=== PATIENT | female | born 1985 | race African-American/Black ===

== ENCOUNTER 2016-12-28 09:42 | Emergency (ER) | payer MEDICAID ==
[~2016-12-28] VITALS: Ht 160 cm; Wt 88.0 kg
[~2016-12-28 09:42] MED LIST: ALPRAZOLAM0.25 MG ORAL; CIPRO500 MG PO; CIPROFLOXACIN500 M2 ORAL; IBUPROFEN600 M1 PO; NKM; ONDANSETRON ODT4 MG ORAL; VIBRAMYCIN100 MG ORAL; ZOFRAN ODT4 MG ORAL
[2016-12-28 09:53] VITALS: BP 131/95
--- NOTE | 2016-12-28 10:05 | Emergency Room Report ---
History of Present Illness General Chief Complaint: Abdominal Pain Source: Patient Present Illness HPI Patient is a 31-year-old female who presented after increased a left-sided foot pain. Patient had gradual onset of symptoms over several week. Patient intermittent symptoms which she states she's had previous work up with her primary care physician to include blood panel. The patient stated she's not had any imaging previously she denies any recent trauma. Patient reported having pain to the bottom of the foot as well as toes. She denies any recent fever. She reports having increased abdominal bloating. As she states she has irregular periods Allergies: Coded Allergies: No Known Allergies (Unverified , 09/26/12) Patient History Past Medical History: see triage record Last Menstrual Period: 11/02/16 Reviewed Nursing Documentation: PMH: Agreed, PSxH: Agreed Nursing Documentation-PM Past Medical History: No Stated History Review of Systems All Other Systems: negative except mentioned in HPI Physical Exam Vital Signs Date Time Temp Pulse Resp B/P Pulse Ox O2 Delivery O2 Flow Rate FiO2 12/28/16 09:48 98.2 92 16 131/95 100 Room Air General Appearance: well appearing, no apparent distress, alert, GCS 15 Head: normocephalic, atraumatic ENT: hearing grossly normal, normal voice Neck: full range of motion, supple Respiratory: no respiratory distress, speaking full sentences Gastrointestinal: normal inspection, soft Musculoskeletal: no calf tenderness, other - flat arch to left foot some tenderness to plantar fascia Neurologic: normal inspection, alert, oriented x3, responsive, singing waiter or waitress III-XII nml as tested, normal gait Psychiatric: mood/affect normal Skin: normal inspection, normal color, no rash Medical Decision Making Diagnostic Impression: Primary Impression: Abdominal pain Additional Impression: Plantar fasciitis of left foot ER Course Patient presented for foot pain. Differential diagnoses include was was not limited to cellulitis, foreign body, fracture, plantar fasciitis, vascular insufficiency, sprain. The patient appears to have evidence of a plantar fasciitis. The patient was advised to followup with her primary care physician for podiatry referral if pain persisted. The patient does not appear to have any infection at this time. The patient is advised to follow up with primary care doctor in 1-2 days. Patient is advised to return if any worsening condition or if any changes in status that are concerning. Labs Test 12/28/16 10:00 Urine Color Pale yellow Urine Appearance Clear Urine pH 7 (4.5-8.0) Urine Specific [place] 1.010 (1.005-1.035) Urine Protein Negative (NEGATIVE) Urine Glucose (UA) Negative (NEGATIVE) Urine Ketones Negative (NEGATIVE) Urine Occult Blood Negative (NEGATIVE) Urine Nitrite Negative (NEGATIVE) Urine Bilirubin Negative (NEGATIVE) Urine Urobilinogen Normal MG/DL (0.0-1.0) Urine Leukocyte Esterase 1+ (NEGATIVE) Urine RBC 0-2 /HPF (0 - 2) Urine WBC 5-10 /HPF (0 - 2) Urine Squamous Epithelial Cells Moderate /LPF (NONE/OCC) Urine Bacteria Few /HPF (NONE) Urine HCG, Qualitative Negative Last Vital Signs Date Time Temp Pulse Resp B/P Pulse Ox O2 Delivery O2 Flow Rate FiO2 12/28/16 09:53 98.2 16 131/95 100 Room Air 12/28/16 09:48 92 Status: improved Disposition: HOME, SELF-CARE Condition: Stable Scripts Ibuprofen* (MOTRIN*) 600 Mg Tablet 600 MG ORAL Q8H Y for For Pain, #30 TAB 0 Refills Prov: Usman Drake 12/28/16 Usman Drake Dec 28, 2016 10:05
[2016-12-28 10:35] LABS: APPEARANCE,URINE CLEAR; KETONES,URINE NEGATIVE (NEGATIVE); LEUKOCYTE ESTERASE ,URINE 1+ (NEGATIVE); NITRITE,URINE NEGATIVE (NEGATIVE); PH,URINE 7 (4.5-8.0); PROTEIN,URINE NEGATIVE (NEGATIVE); UROBILINOGEN,URINE NORMAL MG/DL (0.0-1.0)
[2016-12-28] MEDS ORDERED: IBUPROFEN600 MG ORAL (10:41)
[2016-12-28 10:47] VITALS: BP 131/95
[2016-12-28 10:51] LABS: BACTERIA,URINE FEW /HPF; RBC,URINE 0-2 /HPF (0 - 2); SQUAMOUS EPITHELIAL CELL,UR MODERATE /LPF (NONE/OCC)
--- NOTE | 2016-12-28 11:21 | Diagnostic Imaging Report ---
Indications: Left foot pain, denies trauma Technique: 3 views of the left foot Findings: Comparison: None. No fracture, dislocation, lytic destruction, periosteal reaction, surrounding soft tissue swelling, or other acute changes are demonstrated. Small circumscribed lucency with thin sclerotic margin base first proximal phalanx. No deformity, alignment abnormality, arthritic change, soft tissue calcification, or other chronic changes are demonstrated. IMPRESSION: Small cystic lesion at first proximal phalanx, may be degenerative Otherwise negative left foot series.
== END 2016-12-28 11:01 | disposition home or self-care (01) ==
LOC: EMR 10:04
DX: M79.672 Pain in left foot (principal)
CPT/HCPCS: 81003; 81025; 99283

== ENCOUNTER 2017-01-05 19:01 | Emergency (ER) | payer MEDICAID ==
[~2017-01-05] VITALS: Ht 160 cm; Wt 90.7 kg
[~2017-01-05 19:01] MED LIST changes: +IBUPROFEN600 MG ORAL
[2017-01-05 19:31] VITALS: BP 147/96
[2017-01-05] MEDS ORDERED: Metoclopramide 10mg/2ml Inj IVP ONE (19:45)
[2017-01-05 20:18] LABS: BASOPHILS % (AUTO) 1.8 % (0.0-2.0); EOSINOPHILS % (AUTO) 1.2 % (0.0-3.0); LYMPHOCYTES % (AUTO) 32.7 % (20.0-45.0); MEAN CORPUSCULAR HEMOGLOBIN 29.7 PG (27.0-31.0); MEAN CORPUSCULAR HGB CONC 33.5 G/DL (32.0-36.0); MEAN CORPUSCULAR VOLUME 89 FL (80-99); MEAN PLATELET VOLUME 9.9 FL (6.5-10.1); MONOCYTES % (AUTO) 8.4 % (1.0-10.0); NEUTROPHILS % (AUTO) 55.9 % (45.0-75.0); PLATELET COUNT 228 K/UL (150-450); RED BLOOD COUNT 4.85 M/UL (4.20-5.40); RED CELL DISTRIBUTION WIDTH 15.8 % (11.6-14.8); WHITE BLOOD COUNT 8.1 K/UL (4.8-10.8)
[2017-01-05 20:19] LABS: APPEARANCE,URINE CLEAR; KETONES,URINE NEGATIVE (NEGATIVE); LEUKOCYTE ESTERASE ,URINE 2+ (NEGATIVE); NITRITE,URINE NEGATIVE (NEGATIVE); PH,URINE 6.5 (4.5-8.0); PROTEIN,URINE NEGATIVE (NEGATIVE); UROBILINOGEN,URINE 1 MG/DL (0.0-1.0)
[2017-01-05 20:32] LABS: RBC,URINE 0-2 /HPF (0 - 2)
[2017-01-05 20:33] LABS: BACTERIA,URINE FEW /HPF; SQUAMOUS EPITHELIAL CELL,UR MODERATE /LPF (NONE/OCC)
[2017-01-05 20:40] LABS: INR 0.9 (0.9-1.1); PROTHROMBIN TIME 9.4 SEC (9.30-11.50)
[2017-01-05 20:43] LABS: ALANINE AMINOTRANSFERASE 21 U/L (3-33); ANION GAP 12 (5-15); ASPARTATE AMINO TRANSFERASE 24 U/L (5-40); CALCIUM 9.6 mg/dL (8.6-10.2); CARBON DIOXIDE 25 mEQ/L (20-30); CHLORIDE 100 mEQ/L (98-107); CREATININE 0.7 mg/dL (0.5-0.9); GLOMERULAR FILTRATION RATE > 60 mL/min (>60); HEMOLYSIS 8; POTASSIUM 4.1 mEQ/L (3.4-4.9); SODIUM 137 mEQ/L (135-145); TOTAL PROTEIN 8.4 g/dL (6.6-8.7)
[2017-01-05] MEDS ORDERED: NITROFURANTOIN100 M2 ORAL (21:15)
[2017-01-05] MEDS ORDERED: IBUPROFEN600 MG ORAL (21:15)
[2017-01-05] MEDS ORDERED: ERYTHROMYCIN3.5 GM RIGHT EYE (21:15)
[2017-01-05 21:23] VITALS: BP 147/96
--- NOTE | 2017-01-05 21:59 | Emergency Room Report ---
History of Present Illness General Chief Complaint: General Complaint Source: Patient Present Illness HPI The patient is a 31-year-old female presenting for multiple complaints including rash, right eyelid swelling, and abdominal pain. She states that she noticed a total body rash one week prior which has now resolved but she states that it was itching. She denies any known irritants or history of allergies. Right lower eyelid swelling began 2 days prior and is described as 8/10 dull ache. Worse with touch. She denies any draining from the eye or discharge. She denies any changes in vision. Abdominal pain began 2 months prior and has been continuous. It is described as a 5/10 dull ache in the mid lower abdomen and right lower quadrant. She states her last normal menstrual period was also 2 months prior. she admits to history of right ovarian cyst. She admits to nausea but denies vomiting. She denies any other symptoms including F, chills, SOB, diarrhea, constipation, dysuria, hematuria, vaginal DC Allergies: Coded Allergies: Dairy (Verified Allergy, Unknown, 01/05/17) Patient History Past Medical History: see triage record Pertinent Family History: none Last Menstrual Period: 2 MONTHS AGO Now: No Reviewed Nursing Documentation: PMH: Agreed, PSxH: Agreed Nursing Documentation-PMH Past Medical History: No Stated History Review of Systems All Other Systems: negative except mentioned in HPI Physical Exam Vital Signs Date Time Temp Pulse Resp B/P (MAP) Pulse Ox O2 Delivery O2 Flow Rate FiO2 01/05/17 19:23 98.6 89 18 147/96 98 01/05/17 19:31 Room Air Sp02 EP Interpretation: reviewed, normal General Appearance: no apparent distress, alert, GCS 15, non-toxic Head: normocephalic, atraumatic Eyes: bilateral eye normal inspection, bilateral eye PERRL ENT: hearing grossly normal, normal pharynx, no angioedema, normal voice Neck: full range of motion, supple/symm/no masses Gastrointestinal: tenderness - TTP over the RLQ and suprapubic region Musculoskeletal: back normal, gait/station normal, normal range of motion, non- tender Neurologic: alert, oriented x3, responsive, motor strength/tone normal, sensory intact, speech normal Psychiatric: judgement/insight normal, memory normal, mood/affect normal, no suicidal/homicidal ideation Skin: normal color, no rash, warm/dry, well hydrated Medical Decision Making PA Attestation Dr. Arnold is my supervising physician. Patient management was discussed with my supervising physician Diagnostic Impression: Primary Impression: UTI (urinary tract infection) Qualified Codes: N39.0 - Urinary tract infection, site not specified Additional Impression: Blepharitis of right eyelid Qualified Codes: H01.002 - Unspecified blepharitis right lower eyelid ER Course The patient is a 31-year-old female presenting for multiple complaints including rash, right eyelid swelling, and abdominal pain DDx considered but not limited to: appendicitis, UTI, PID, ovarian cyst, blepharitis, conjunctivitis, stye, contact dermatitis, among others PE: NAD. HEENT: R lower eyelid has edema and erythema at lid margin. No injection or DC. PERRL Skin is warm and dry. No erythema. No urticaria. No lesions. TTP over the suprapubic and RLQ. No guarding. Normal BS. Blood work unremarkable. Neg preg. UA shows signs of infection. Pt given reglan with relief of nausea. She declines pain medication SHe will be treated for UTI and blepharitis and will be DC'ed home with ER precautions. Laboratory Tests Test 01/05/17 19:50 White Blood Count 8.1 K/UL (4.8-10.8) Red Blood Count 4.85 M/UL (4.20-5.40) Hemoglobin 14.4 G/DL (12.0-16.0) Hematocrit 43.0 % (37.0-47.0) Mean Corpuscular Volume 89 FL (80-99) Mean Corpuscular Hemoglobin 29.7 PG (27.0-31.0) Mean Corpuscular Hemoglobin Concent 33.5 G/DL (32.0-36.0) Red Cell Distribution Width 15.8 % (11.6-14.8) H Platelet Count 228 K/UL (150-450) Mean Platelet Volume 9.9 FL (6.5-10.1) Neutrophils (%) (Auto) 55.9 % (45.0-75.0) Lymphocytes (%) (Auto) 32.7 % (20.0-45.0) Monocytes (%) (Auto) 8.4 % (1.0-10.0) Eosinophils (%) (Auto) 1.2 % (0.0-3.0) Basophils (%) (Auto) 1.8 % (0.0-2.0) Prothrombin Time 9.4 SEC (9.30-11.50) Prothrombin Time INR 0.9 (0.9-1.1) PTT 28 SEC (23-33) Urine Color Pale yellow Urine Appearance Clear Urine pH 6.5 (4.5-8.0) Urine Specific [place] 1.020 (1.005-1.035) Urine Protein Negative (NEGATIVE) Urine Glucose (UA) Negative (NEGATIVE) Urine Ketones Negative (NEGATIVE) Urine Occult Blood Negative (NEGATIVE) Urine Nitrite Negative (NEGATIVE) Urine Bilirubin Negative (NEGATIVE) Urine Urobilinogen 1 MG/DL (0.0-1.0) H Urine Leukocyte Esterase 2+ (NEGATIVE) H Urine RBC 0-2 /HPF (0 - 2) Urine WBC 10-15 /HPF (0 - 2) H Urine Squamous Epithelial Cells Moderate /LPF (NONE/OCC) H Urine Bacteria Few /HPF (NONE) Urine HCG, Qualitative Negative Sodium Level 137 mEQ/L (135-145) Potassium Level 4.1 mEQ/L (3.4-4.9) Chloride Level 100 mEQ/L (98-107) Carbon Dioxide Level 25 mEQ/L (20-30) Anion Gap 12 (5-15) Blood Urea Nitrogen 12 mg/dL (7-23) Creatinine 0.7 mg/dL (0.5-0.9) Estimate Glomerular Filtration Rate > 60 mL/min (>60) Glucose Level 91 mg/dL (74-106) Calcium Level 9.6 mg/dL (8.6-10.2) Total Bilirubin < 0.2 mg/dL (0.0-1.2) Aspartate Amino Transferase (AST) 24 U/L (5-40) Alanine Aminotransferase (ALT) 21 U/L (3-33) Alkaline Phosphatase 91 U/L (35-104) Total Protein 8.4 g/dL (6.6-8.7) Albumin 4.2 g/dL (3.5-5.2) Globulin 4.2 g/dL Albumin/Globulin Ratio 1.0 (1.0-2.7) Lab Results Impression No leukocytosis. CMP unremarkable UA shows signs of infection Last Vital Signs Date Time Temp Pulse Resp B/P (MAP) Pulse Ox O2 Delivery O2 Flow Rate FiO2 01/05/17 19:31 98.6 89 18 147/96 98 Room Air Status: improved Disposition: HOME, SELF-CARE Condition: Improved Scripts Erythromycin Base (ERYTHROMYCIN*) 3.5 Gm Oint...g. 1 APPLIC RIGHT EYE Q12HR, #3.5 GM 0 Refills Prov: STEVAN HIGGINS P.A. 01/05/17 Nitrofurantoin Monohyd/M-Cryst* (MACROBID 100 MG*) 100 Mg Capsule 100 MG ORAL EVERY 12 HOURS, #14 CAP Prov: STEVAN HIGGINS P.A. 01/05/17 Ibuprofen* (MOTRIN*) 600 Mg Tablet 600 MG ORAL Q8H Y for For Pain, #30 TAB 0 Refills Prov: STEVAN HIGGINS.A. 01/05/17 Patient Instructions: Blepharitis, Urinary Tract Infection Additional Instructions: I discussed my findings with the patient. All questions and concerns have been answered. Treatment and medication compliance have been addressed. I advised the patient that they need to follow up with PMD in 3-5 days. Return to ED if symptoms worsen, new symptoms arise, or if needed for any reason. Patient verbalized understanding of discharge instructions. STEVAN HIGGINS Jan 05, 2017 21:59
== END 2017-01-05 21:23 | disposition home or self-care (01) ==
LOC: EMR 20:04
DX: N39.0 Urinary tract infection, site not specified (principal); H01.002 Unspecified blepharitis right lower eyelid
CPT/HCPCS: 36415; 80053; 81003; 81025; 85025; 85610; 85730; 87086; 99284; J2765

== ENCOUNTER 2020-03-04 23:57 | Emergency (ER) | payer MEDICAID ==
[~2020-03-04] VITALS: Ht 160 cm; Wt 74.8 kg
[~2020-03-04 23:57] MED LIST changes: +ERYTHROMYCIN3.5 GM RIGHT EYE; +NITROFURANTOIN100 M2 ORAL
[2020-03-05] MEDS ORDERED: Lidocaine 1% Plain 30 ml INJ ONE (00:15)
[2020-03-05] MEDS ORDERED: AMOX TR-K CLV1 EAC2 ORAL (00:16)
--- NOTE | 2020-03-05 00:21 | Emergency Room Report ---
History of Present Illness General Chief Complaint: Pain Source: Patient Present Illness HPI Disclaimer: Please note that this report is being documented using DRAGON technology. This can lead to erroneous entry secondary to incorrect interpretation by the dictating instrument. HPI: 34-year-old female presents for evaluation of jaw pain. Patient states she fractured a tooth in the left lower jaw many years ago. She has felt increased pain and cold sensitivity in that area for the past week. Notes pain in the left jaw at the angle of mandible radiating upward to the TMJ. Denies difficulty opening closing the jaw. Denies oral swelling, difficulty breathing, throat swelling, fever, chills, vomiting. Tolerating secretions and eating and drinking at baseline. Has not yet followed up with dental surgery for extraction of retained fragments. PMH: Reviewed PSH: Reviewed Allergies: Reviewed Social Hx: Reviewed Allergies: Coded Allergies: Dairy (Verified Allergy, Unknown, 01/05/17) COVID-19 Screening Contact w/high risk pt: No Experienced COVID-19 symptoms?: No COVID-19 Testing performed PRODUCTION SANITIZER: No Patient History Last Menstrual Period: 02/06/20 Now: No Review of Systems All Other Systems: negative except mentioned in HPI Physical Exam Vital Signs Date Time Temp Pulse Resp B/P (MAP) Pulse Ox O2 Delivery O2 Flow Rate FiO2 03/05/20 00:02 98.4 95 18 147/91 (109) 98 Room Air General: Awake and alert, no acute distress HEENT: NC/AT. EOMI. no tenderness or swelling over the TMJ or mandible. Parotids are soft and nontender. Full range of motion of the mandible. The 18th tooth is fractured with retained mentation in the gumline. There is marked edema and erythema. No obvious abscess over the gum. No necrosis. No submandibular lymph nodes. Uvula is midline. Tonsils nonobstructing. No difficulty speaking or tolerating secretions. Resp: Normal work of breathing Skin: Intact. No abrasions, laceration or rash over the exposed skin MSK: Normal tone and bulk. Moving all extremities. No obvious deformity. Neuro: Awake and alert. Mentating appropriately Medical Decision Making Diagnostic Impression: Primary Impression: Dental infection ER Course Is a 34-year-old female presents for evaluation of jaw pain 1 week duration. P hysical exam findings shows fractured tooth #18 with surrounding edema and erythema consistent with dental infection. No obvious abscess or drainage. Will start on Augmentin. Inferior alveolar nerve block performed. First dose of antibiotics given in the ED. Patient be referred to dentistry for dental extraction. Advised her to return to the emergency department new or worsening symptoms. She understands and agrees with this treatment plan. Last Vital Signs Date Time Temp Pulse Resp B/P (MAP) Pulse Ox O2 Delivery O2 Flow Rate FiO2 03/05/20 00:02 98.4 95 18 147/91 (109) 98 Room Air Disposition: HOME, SELF-CARE Condition: Stable Scripts Amoxicillin/Potassium Clav 875-125 Mg Tab* (AMOX TR-K CLV 875-125 MG TAB*) 1 Each Tablet 1 TAB ORAL EVERY 12 HOURS for 7 Days, #14 TAB Prov: Stephon Foss MD 03/05/20 Referrals: [facility](age 2-12) - Orthodontic Clinic - Hours: Tue,Tue,, 8:15am and 1pm (new patient screening), . 1pm. Emergency clinic Tuesday - Tuesday 8:30am and 1pm, Tues. 1pm. *Call to check if clinic is open; No appointment necessary for the first visit (new patient screening), Arrive 15-30 minutes early as it is first come, first serve. [facility] PEDS [facility] - [facility] Location: 2nd Floor [address] [place] [address] INFO: Tue & Tue-8:30am-4:30pm, - 8:30am - 7pm, - Emergency only, Tue- 8:30am-11:30am and afternoon emergency only [facility] INFO: New Patient Screening: Tue- 8am-1pm Tue- 9am -5pm and Tue 2pm-5pm Patient Instructions: Dental Pain Additional Instructions: Follow-up with dentistry as soon as possible for extraction of the fractured tooth. Take the entire course of antibiotics even if symptoms improve over the next 2 days. Return to the emergency department with new or worsening symptoms. Stephon Foss MD Mar 05, 2020 00:21
[2020-03-05 00:26] VITALS: BP 147/91
[2020-03-05 00:40] VITALS: BP 147/91
[2020-03-05] MEDS ORDERED: HYDROcodone/Acetamin 5/325 tab ORAL ONE (00:45)
[2020-03-05] MEDS ORDERED: Augmentin 875mg Tab ORAL ONE (00:45)
== END 2020-03-05 00:41 | disposition home or self-care (01) ==
LOC: EMR 03-05 00:07
DX: K04.7 Periapical abscess without sinus (principal); S02.5XXA Fracture of tooth (traumatic), initial encounter for closed fracture; X58.XXXA Exposure to other specified factors, initial encounter; Y92.9 Unspecified place or not applicable
CPT/HCPCS: 96374; J2001; Z7502; 99283